=== PATIENT | male | born 1960 | race Caucasian/White ===

== ENCOUNTER 2022-02-20 23:15 | Emergency (ER) | payer OTHER ==
[2022-02-20 23:31] VITALS: RESP 18; BMI 23.7
[2022-02-20] MEDS ORDERED: SODIUM CHLORIDE 1,000 ML IV ONE (23:41)
[2022-02-20] MEDS ORDERED: ONDANSETRON 4 MG/2 ML VIAL IVPB ONE (23:41)
[2022-02-20] MEDS ORDERED: ACETAMINOPHEN 500 MG TABLET (FP) PO ONE (23:42)
[2022-02-20] MEDS ORDERED: ACETAMINOPHEN INJECTION 100 ML IVPB ONE (23:49)
[2022-02-20] MEDS ORDERED: ONDANSETRON 4 MG/2 ML VIAL ONE (23:49)
[2022-02-21 01:22] LABS: HEMATOCRIT 45.4 % (35.4-49); HEMOGLOBIN 15.6 GM/dL (11.7-16.9); MCH 30.5 pg (25.7-33.7); MCHC 34.4 g/dl (32.0-35.9); MEAN CELL VOLUME 88.6 fl (80-96); MEAN PLT VOLUME 10.3 fl (7.5-11.1); PLATELET COUNT 290 10^3/uL (134-434); RBC 5.12 M/mm3 (4.00-5.60); RDW 12.9 % (11.9-15.9); WHITE BLOOD COUNT 15.2 K/mm3 (4.0-10.0)
[2022-02-21 01:28] LABS: CALCIUM 9.4 mg/dL (8.5-10.1)
[2022-02-21 01:29] LABS: ALBUMIN 4.2 g/dl (3.4-5.0); BLOOD UREA NITROGEN 19.3 mg/dL (7-18)
[2022-02-21 01:32] LABS: CREATININE 1.3 mg/dL (0.55-1.3)
[2022-02-21 01:34] LABS: BILIRUBIN,TOTAL 0.8 mg/dL (0.2-1); TOT PROT 7.6 g/dl (6.4-8.2)
[2022-02-21] MEDS ORDERED: IBUPROFEN 600 MG TABLET (FP) PO ONE ×2 (02:49→04:03)
[2022-02-21 02:58] VITALS: BP 134/81; PULSE 113; TEMP 98.5
== END 2022-02-21 04:13 | disposition home or self-care (01) ==
LOC: FER 23:15
PROC: 3E033GC Introduction of Other Therapeutic Substance into Peripheral Vein, Percutaneous Approach (ICD-10-PCS; principal; 2022-02-20)
DX: R05.1 Acute cough (principal)
CPT/HCPCS: 0241U-QW; 36415; 71045-TC-FY; 71101-TC-RT-FY; 80053; 85027; 87040; 99284-25